=== PATIENT | female | born 1950 | race Caucasian/White ===

== ENCOUNTER 2017-03-13 12:29 | Emergency (ER) | payer OTHER ==
[2017-03-13 12:50] VITALS: BMI 34.9
[2017-03-13 13:45] LABS: PH,URINE 6.5 (4.5-8); URINE APPEARANCE Clear; URINE BILIRUBIN Negative (NEGATIVE); URINE GLUCOSE (UA) Negative (NEGATIVE); URINE KETONE Negative (NEGATIVE); URINE NITRITE Negative (NEGATIVE); URINE PROTEIN Negative (NEGATIVE); URINE UROBILINOGEN 0.2 (0.2-1.0)
[2017-03-13 13:46] LABS: URINE BLOOD Trace-lysed (NEGATIVE); URINE COLOR YELLOW; URINE LEUK ESTERASE 2+ (NEGATIVE)
--- NOTE | 2017-03-13 13:52 | PDOC ---
History of Present Illness - General Chief Complaint: Pain, Acute Stated Complaint: abd pain Time Seen by Provider: 03/13/17 13:47 - History of Present Illness Initial Comments: 03/13/17 13:50 66 F with h/o HTN, hypothyroidism presents with 3 days of diffuse abdominal pain. Pt states that the pain is intermittent and cramping, starting in her lower abdomen radiating to both sides. Pt endorses nausea without vomiting. She has been having loose watery stools for 2 days. Denies F/C. Denies dark or bloody stools. Denies dysuria, denies vaginal bleeding/discharge. Pt has had prior merrill, no other surgeries. Denies CP/SOB/palpitations. Past History - Past Medical History Allergies/Adverse Reactions: Allergies Allergy/AdvReac Type Severity Reaction Status Date / Time Penicillins Allergy Severe Rash Verified 03/13/17 12:31 Sulfa (Sulfonamide Allergy Intermediate Rash Verified 03/13/17 12:31 Antibiotics) [Sulfa(Sulfonamide Antibiotics)] Home Medications: Ambulatory Orders Cetirizine HCl [Zyrtec] 10 mg PO HS 12/12/11 Doxazosin Mesylate [Cardura] 4 mg PO HS 12/12/11 Levothyroxine [Synthroid -] 75 mcg PO DAILY 12/12/11 Nebivolol HCl [Bystolic] 5 mg PO DAILY 12/12/11 Ciprofloxacin [Cipro -] 500 mg PO Q12H #14 tablet 03/13/17 Metronidazole [Flagyl -] 500 mg PO TID #21 tablet 03/13/17 Anemia: No Asthma: No Cancer: No Cardiac Disorders: No CVA: No COPD: No CHF: No Dementia: No Diabetes: No GI Disorders: Yes (STATES ACHING ABDOMINAL PAIN SINCE GALLBLADDER REMOVED ALONG WITH DIARRHEA) Disorders: No HTN: Yes (2004) Hypercholesterolemia: No Liver Disease: No Seizures: No Thyroid Disease: Yes (2003) - Surgical History Abdominal Surgery: No Appendectomy: No Cardiac Surgery: No Cholecystectomy: Yes (11/2011-STATES HAS HAD ACHING ABDOMINAL PAIN SINCE THEN) Lung Surgery: No Neurologic Surgery: No Orthopedic Surgery: Yes (LEFT FOOT SURGERY FOR KNIFE INJURY-TENDON AND NERVE) - Suicide/Smoking/Psychosocial Hx Smoking History: Never smoked Have you smoked in the past 12 months: No Number of Cigarettes Smoked Daily: 0 If you are a former smoker, when did you quit?: 1972 Information on smoking cessation initiated: No Hx Alcohol Use: No Drug/Substance Use Hx: No Substance Use Type: None Hx Substance Use Treatment: No Review of Systems - Review of Systems Comments:: 03/13/17 14:20 "GENERAL/CONSTITUTIONAL: No fever or chills. No weakness. HEAD, EYES, EARS, NOSE AND THROAT: No change in vision. No ear pain or discharge. No sore throat. CARDIOVASCULAR: No chest pain or shortness of breath. RESPIRATORY: No cough, wheezing, or hemoptysis. GASTROINTESTINAL: + abdominal pain, + nausea, +diarrhea, no vomiting or constipation. GENITOURINARY: No dysuria, frequency, or change in urination. MUSCULOSKELETAL: No joint or muscle swelling or pain. No neck or back pain. SKIN: No rash NEUROLOGIC: No headache, vertigo, loss of consciousness, or change in strength/ sensation. ENDOCRINE: No increased thirst. No abnormal weight change. HEMATOLOGIC/LYMPHATIC: No anemia, easy bleeding, or history of blood clots. ALLERGIC/IMMUNOLOGIC: No hives or skin allergy. " *Physical Exam - Vital Signs Last Vital Signs Temp Pulse Resp BP Pulse Ox 99.1 F 78 18 169/80 98 03/13/17 12:30 03/13/17 12:30 03/13/17 12:30 03/13/17 12:30 03/13/17 12:30 - Physical Exam Comments: 03/13/17 14:21 "GENERAL: Awake, alert, and fully oriented, in no acute distress HEAD: No signs of trauma EYES: PERRLA, EOMI, sclera anicteric, conjunctiva clear ENT: Auricles normal inspection, hearing grossly normal, nares patent, oropharynx clear without exudates. Moist mucosa NECK: Nontender, no stepoffs, Normal ROM, supple, no lymphadenopathy, JVD, or masses LUNGS: Breath sounds equal, clear to auscultation bilaterally. No wheezes, and no crackles HEART: Regular rate and rhythm, normal S1 and S2, no murmurs, rubs or gallops ABDOMEN: Soft, mild lower quadrant tenderness, R>L, normoactive bowel sounds. No guarding, no rebound. No masses, no CVAT EXTREMITIES: Normal range of motion, no edema. No clubbing or cyanosis. No cords, erythema, or tenderness NEUROLOGICAL: Cranial nerves II through XII intact. 5/5 strength and sensation in all extremities, Normal speech, normal gait SKIN: Warm, Dry, normal turgor, no rashes or lesions noted. " ED Treatment Course - LABORATORY CBC & Chemistry Diagram: 03/13/17 13:36 03/13/17 14:40 - ADDITIONAL ORDERS Additional order review: Laboratory Results 03/13/17 13:04 Urine Color Yellow Urine Appearance Clear Urine pH 6.5 Ur Specific [place] 1.010 Urine Protein Negative Urine Glucose (UA) Negative Urine Ketones Negative Urine Blood Trace-lysed H Urine Nitrite Negative Urine Bilirubin Negative Urine Urobilinogen 0.2 Medical Decision Making - Medical Decision Making 03/13/17 14:22 66 F with lower abdominal pain, nausea, and diarrhea. Concerning for colitis vs diverticulitis. - Labs, lactate - CTAP 03/13/17 17:22 CTAP shows acute sigmoid diverticulitis without abscess or free perforation. Pt reassessed - reports pain is tolerable. Pt able to tolerate PO fluids. Pt started on cipro/flagyl. To f/u with PMD and GI. *DC/Admit/Observation/Transfer Diagnosis at time of Disposition: Sigmoid diverticulitis - Discharge Dispostion Disposition: HOME Condition at time of disposition: Stable - Prescriptions Prescriptions: Ciprofloxacin [Cipro -] 500 mg PO Q12H #14 tablet Metronidazole [Flagyl -] 500 mg PO TID #21 tablet - Patient Instructions Printed Discharge Instructions: DI for Diverticulitis Additional Instructions: Take the antibiotics as prescribed for 1 week. Please follow up with your primary care doctor within 1 week for a re- evaluation and a GI doctor within 1 month for further evaluation of your diverticulitis. If you experience worsening or persistent abdominal pain, vomiting, fevers, or any other concerning symptoms, return to the ER immediately. - Attestations Physician Attestion: 03/13/17 17:28 I, Dr. Bill Hinojosa MD, attest that this document has been prepared under my direction and personally reviewed by me in its entirety. I further attest, that it accurately reflects all work, treatment, procedures and medical decision -making performed by me.
[2017-03-13] MEDS ORDERED: ONDANSETRON 4 MG/2 ML VIAL IVPUSH ONE (13:54)
[2017-03-13 14:07] LABS: URINE WBC 20-40 (3-5)
[2017-03-13 14:24] LABS: BASOPHIL 1.5 % (0-2.0); MCHC 33.7 g/dl (32.0-36.0); MEAN CELL VOLUME 86.1 fl (80-96); MEAN PLT VOLUME 10.4 fl (7.5-11.1); NEUTROPHILS 80.4 % (42.8-82.8); PLATELET COUNT 150 K/MM3 (134-434); WHITE BLOOD COUNT 14.7 K/mm3 (4.0-10.8)
[2017-03-13 15:17] LABS: ALBUMIN 4.2 g/dl (3.5-5.0); ALK PHOS 80 U/L (32-92); ANION GAP 8 (8-16); BILIRUBIN,TOTAL 1.3 mg/dl (0.2-1.0); CO2 24 mmol/L (22-28); CPK 55 IU/L (26-192); CREATININE 0.8 mg/dl (0.6-1.3); GLUCOSE,RANDOM 96 mg/dl (74-106); SGOT/AST 17 U/L (10-42); SGPT/ALT 15 U/L (10-40); TOT PROT 7.3 g/dl (6.4-8.3)
[2017-03-13 15:18] LABS: ACTIVATED PTT 24.1 SECONDS (24.0-38.9)
[2017-03-13 15:23] LABS: INR 1.09 (0.82-1.09); PROTHROMBIN TIME (PATIENT) 12.2 SEC (10.2-13.0)
[2017-03-13 16:35] LABS: TROPONIN I (DFP) < 0.03 ng/ml (0.03-0.50)
[2017-03-13] MEDS ORDERED: metroNIDAZOLE 250 MG TABLET PO ONE (17:21)
[2017-03-13] MEDS ORDERED: CIPROFLOXACIN 500 MG TABLET (RESTRICTED TO ID) PO ONE (17:21)
[2017-03-13] MEDS ORDERED: CIPROFLOXACIN 250 MG TABLET (RESTRICTED TO ID) PO ONE (17:36)
[2017-03-13] MEDS ORDERED: metroNIDAZOLE 250 MG TABLET ONE ×2 (17:36→17:42)
[2017-03-13 17:52] VITALS: BP 170/88; PULSE 68; TEMP 98.8
--- NOTE | 2017-03-14 20:39 | EKG ---
Test Reason : Blood Pressure : / mmHG Vent. Rate : 072 BPM Atrial Rate : 072 BPM P-R Int : 206 ms QRS Dur : 092 ms QT Int : 400 ms P-R-T Axes : 006 -12 001 degrees QTc Int : 438 ms SINUS RHYTHM WITH FIRST DEGREE AV BLOCK CANNOT RULE OUT ANTERIOR INFARCT , AGE UNDETERMINED ABNORMAL ECG NO PREVIOUS ECGS AVAILABLE NO CLINICAL INFORMATION IS AVAILABLE REPEAT EKG IF CLINICALLY INDICATED Confirmed by MAXX BAKER MD ([id number]) on 03/14/2017 8:39:17 PM Referred By: TOMI Confirmed By:MAXX BAKER MD
== END 2017-03-13 17:55 | disposition home or self-care (01) ==
LOC: FER 12:29
DX: K57.92 Diverticulitis of intestine, part unspecified, without perforation or abscess without bleeding (principal); E03.9 Hypothyroidism, unspecified; I10 Essential (primary) hypertension
CPT/HCPCS: 36415; 74177-TC; 80053; 81003; 81015; 83605; 83690; 84484; 85025; 85610; 85730; 87086; 93005; 99283-25

== ENCOUNTER 2017-09-05 09:29 | Emergency (ER) | payer OTHER ==
--- NOTE | 2017-09-05 09:36 | PDOC ---
History of Present Illness - General Chief Complaint: Injury Stated Complaint: LEFT KNEE INJURY Time Seen by Provider: 09/05/17 09:34 History Source: Patient (Patient complains of pain in the left knee after trying to prevent a full fall, twisting the knee with pain) Exam Limitations: No Limitations - History of Present Illness Timing/Duration: constant, getting worse Severity: moderate, severe Modifying Factors: improves with: cold therapy, medication, rest Associated Symptoms: reports: denies symptoms Past History - Travel Traveled outside of the country in the last 30 days: No Close contact w/someone who was outside of country & ill: No - Past Medical History Allergies/Adverse Reactions: Allergies Allergy/AdvReac Type Severity Reaction Status Date / Time Penicillins Allergy Severe Rash Verified 09/05/17 09:30 Sulfa (Sulfonamide Allergy Intermediate Rash Verified 09/05/17 09:30 Antibiotics) [Sulfa(Sulfonamide Antibiotics)] Home Medications: Ambulatory Orders Cetirizine HCl [Zyrtec] 10 mg PO HS 12/12/11 Doxazosin Mesylate [Cardura] 4 mg PO HS 12/12/11 Levothyroxine [Synthroid -] 75 mcg PO DAILY 12/12/11 Nebivolol HCl [Bystolic] 5 mg PO DAILY 12/12/11 Anemia: No Asthma: No Cancer: No Cardiac Disorders: No CVA: No COPD: No CHF: No Dementia: No Diabetes: No GI Disorders: Yes (STATES ACHING ABDOMINAL PAIN SINCE GALLBLADDER REMOVED ALONG WITH DIARRHEA) Disorders: No HTN: Yes (2004) Hypercholesterolemia: No Liver Disease: No Seizures: No Thyroid Disease: Yes (2003) - Surgical History Abdominal Surgery: No Appendectomy: No Cardiac Surgery: No Cholecystectomy: Yes (11/2011-STATES HAS HAD ACHING ABDOMINAL PAIN SINCE THEN) Lung Surgery: No Neurologic Surgery: No Orthopedic Surgery: Yes (LEFT FOOT SURGERY FOR KNIFE INJURY-TENDON AND NERVE) - Suicide/Smoking/Psychosocial Hx Smoking History: Never smoked Have you smoked in the past 12 months: No Number of Cigarettes Smoked Daily: 0 If you are a former smoker, when did you quit?: 1972 Hx Alcohol Use: No Drug/Substance Use Hx: No Substance Use Type: None Hx Substance Use Treatment: No Review of Systems - Review of Systems Able to Perform ROS?: No Is the patient limited Tristanian proficient: No Constitutional: No: Symptoms Reported, See HPI, Chills, Diaphoresis, Fever, Loss of Appetite, Malaise, Night Sweats, Weakness, Weight Stable, Unintentional Wgt. Loss, Unexplained wgt Loss, Other HEENTM: No: Symptoms Reported, See HPI, Eye Pain, Blurred Vision, Tearing, Recent change in vision, Double Vision, Cataracts, Ear Pain, Ocular Prothesis, Ear Discharge, Nose Pain, Nose Congestion, Tinnitus, Nose Bleeding, Hearing Loss , Throat Pain, Throat Swelling, Mouth Pain, Dental Problems, Difficulty Swallowing, Mouth Swelling, Other Respiratory: No: Symptoms reported, See HPI, Cough, Orthopnea, Shortness of Breath, SOB with Exertion, SOB at Rest, Stridor, Wheezing, Productive cough, Hemoptysis, Other Cardiac (ROS): No: Symptoms Reported, See HPI, Chest Pain, Edema, Irregular Heart Rate, Lightheadedness, Palpitations, Syncope, Chest Tightness, Other Musculoskeletal: Yes: See HPI, Joint Pain Integumentary: No: Symptoms Reported, See HPI, Bruising, Change in Color, Change in Hair/Nails, Dryness, Erythema, Flushing, Lesions, Lumps, Pallor, Pruritus, Rash, Sweating, Other Neurological: No: Symptoms reported, See HPI, Headache, Numbness, Paresthesia, Pre-Existing Deficit, Seizure, Tingling, Tremors, Weakness, Unsteady Gait, Ataxia, Dizziness, Other Endocrine: No: Symptoms Reported, See HPI, Excessive Sweating, Flushing, Intolerance to Cold, Intolerance to Heat, Increased Hunger, Increased Thirst, Increased Urine, Unexplained Weight Gain, Unexplained Weight Loss, Change in Weight, Other All Other Systems: Reviewed and Negative *Physical Exam - Physical Exam General Appearance: Yes: Nourished, Appropriately Dressed, Moderate Distress, Obese HEENT: positive: BILL Neck: positive: Supple. negative: Tender Respiratory/Chest: positive: Lungs Clear Cardiovascular: positive: Regular Rate, S1, S2 Musculoskeletal: positive: Normal Inspection, Decreased Range of Motion Extremity: positive: Normal Capillary Refill, Tender (Tenderness on the medial and lateral aspects of left knee), Pelvis Stable Integumentary: positive: Normal Color, Dry Neurologic: positive: Fully Oriented, Alert, Normal Mood/Affect Medical Decision Making - Medical Decision Making Velcro Knee Immobilizer applied. Patient instructed on use of it and clutches walking. She will follow with her own Md, Dr Bhakta 09/06/17 15:10 *DC/Admit/Observation/Transfer Diagnosis at time of Disposition: Knee joint injury Qualifiers: Encounter type: initial encounter Laterality: left Qualified Code(s): S89.92XA - Unspecified injury of left lower leg, initial encounter - Discharge Dispostion Disposition: HOME Condition at time of disposition: Stable Admit: No - Referrals Referrals: Franky Bloom [Primary Care Provider] - David Bhakta MD [Staff Physician] - - Patient Instructions Printed Discharge Instructions: Knee Sprain, DI for Knee Pain Additional Instructions: Elevation, keep knee brace daytime, off nights, Advil Gelcaps Three times a day with food See your Ortho MD - Post Discharge Activity
[2017-09-05 09:38] VITALS: TEMP 97.4; BMI 37.8
[2017-09-05 10:40] VITALS: BP 158/77; PULSE 78
== END 2017-09-05 10:50 | disposition home or self-care (01) ==
LOC: FER 09:29
PROC: 2W3RX1Z Immobilization of Left Lower Leg using Splint (ICD-10-PCS; principal; 2017-09-05)
DX: S89.92XA Unspecified injury of left lower leg, initial encounter (principal); X58.XXXA Exposure to other specified factors, initial encounter; Y93.89 Activity, other specified; Y92.9 Unspecified place or not applicable; E07.9 Disorder of thyroid, unspecified; I10 Essential (primary) hypertension
CPT/HCPCS: 73560-TC-LT-FY; 99282-25